=== PATIENT | male | born 1995 | race Caucasian/White ===

== ENCOUNTER 2023-03-28 10:08 | Outpatient (REF) | payer BC, SELFPAY ==
[2023-03-28 18:47] LABS: ALT 39 U/L (16-63); AST 39 U/L (15-37); Albumin 4.1 g/dL (3.4-5.0); Alkaline Phosphatase 80 U/L (46-116); BUN 21 mg/dL (7-18); Bilirubin, Total 0.6 mg/dL (0.2-1.0); CREATININE 1.1 mg/dL (0.70-1.30); Calcium 9.4 mg/dL (8.5-10.1); Chloride 104 mmol/L (98-107); Estimated GFR 93.19 (mL/min/1.73m2); Glucose 115 mg/dL (74-106); Potassium 3.9 mmol/L (3.5-5.1); Sodium 140 mmol/L (136-145); Total Protein 7.3 g/dL (6.4-8.2)
== END 2023-03-28 10:09 | disposition home or self-care (01) ==
LOC: NCHCN 10:08
PROVIDERS: PCP Internal Medicine; Visit Provider Nurse Practitioner Family
DX: Z00.00 Encounter for general adult medical examination without abnormal findings (principal)
CPT/HCPCS: 80053

== ENCOUNTER → 2023-07-15 17:22 | Outpatient (CLI) | payer BC, SELFPAY ==
--- NOTE | 2023-07-15 16:07 | DI.RAD_ITS ---
Exam(s) XR CHEST 2V PA LATERAL EXAM: XR CHEST 2V PA LATERAL CLINICAL HISTORY: COUGH R05.9 TECHNIQUE: 2D digital imaging was performed of the chest. Two images were obtained. PA and lateral views were obtained. COMPARISON: No priors for comparison FINDINGS: MEDIASTINUM: Normal. HEART: Normal. PULMONARY VASCULATURE: Normal. LUNGS: Clear. PLEURAL SPACE: No pleural effusion or pneumothorax. BONE:Within normal limits for the patient's age. OTHER FINDINGS:Normal. IMPRESSION: No acute pulmonary findings. DATA REPOSITORY: RADIATION DOSE DELIVERED:
== END ==
PROVIDERS: PCP Internal Medicine; Visit Provider Nurse Practitioner Family
DX: R05.9 Cough, unspecified (principal)
CPT/HCPCS: 71046

== ENCOUNTER 2025-01-28 16:10 | Emergency (ER) | payer OTHER, SELFPAY ==
--- NOTE | 2025-01-28 16:00 | RT.EKG_ITS ---
APPROVED REPORT Exam: Resting ECG Reason for Exam: paliptations Patient Location: E HR:45 bpm ECG Measurements Heart Rate 45 AXIS AL 165 P 57 QRSd 73 QRS 67 QT 413 T 67 QTc 358 Conclusion Slow sinus arrhythmia...V-rate 36- 52, mean< 60
[2025-01-28 16:22] VITALS: BP 127/84; PULSE 54; RESP 20; TEMP 36.5; O2SAT 98
--- NOTE | 2025-01-28 16:30 | DI.RAD_ITS ---
Exam(s) XR CHEST 2V PA LATERAL EXAM: XR CHEST 2V PA LATERAL CLINICAL HISTORY: palpitations TECHNIQUE: 2D digital imaging was performed of the chest. Two images were obtained. PA and lateral views were obtained. COMPARISON: CR XR CHEST 2V PA LATERAL from 07/15/2023 FINDINGS: MEDIASTINUM: Normal. HEART: Normal. PULMONARY VASCULATURE: Normal. LUNGS: Clear. PLEURAL SPACE: No pleural effusion or pneumothorax. BONE:Within normal limits for the patient's age. OTHER FINDINGS:Normal. IMPRESSION: No acute pulmonary findings. DATA REPOSITORY: RADIATION DOSE DELIVERED:
--- NOTE | 2025-01-28 16:46 | ED.GENADUL_ITS ---
Discharge Plan Disposition Patient Disposition: Home Condition: Stable Discharge Details Clinical Impression: Palpitations Primary Care Provider: HENRIK OROZCO ED Provider: Trever Fischer Home Meds and New Rx's Prescriptions: No Action No Known Home Meds Discharge Instructions Additional Instructions: Your blood work did not show any concerning findings, you did have findings consistent with likely mild dehydration. Follow-up with your primary care provider. If you feel more ill or have severe worsening pain or difficulty breathing return to the emergency department for reevaluation. HPI General Mode of arrival: ambulatory . Date/Time Provider Initiated Documentation: 01/28/25 16:14 . Limitations to Documentation: no limitations . Information obtained by: patient . History of Present Illness 30 year old M presents to the emergency department with the chief complaint of palpitations, described as moderate, and is localized to the chest. Patient reports no radiation. Patient started experiencing this hour(s) (2) and it has been now resolved. No relieving factors improve symptom(s), No exacerbating factors reported . Patient notes no other symptoms.. Patient did receive the following treatments prior to arrival, none Related Data Home Medications Medication Instructions Recorded Confirmed Unknown [No Known Home Meds] 08/22/21 1 Allergies Allergy/AdvReac Type Severity Reaction Status Date / Time clarithromycin (From Biaxin) Allergy Intermediate Anaphylaxis Verified 01/28/25 16:24 General Stated Complaint: Palpitatns OTILIA: 3 Review of Systems All systems reviewed & are unremarkable except as noted in HPI and below Constitutional Constitutional: Denies chills, Denies fever(s) and Denies weakness Cardiovascular Cardiovascular: Reports chest pain and Denies dyspnea Respiratory Respiratory: Denies cough and Denies dyspnea Gastrointestinal Gastrointestinal: Denies abdominal pain Neurologic Neurologic: Denies weakness Exam Const General: no acute distress Orientation: alert [facility] Head: normal to inspection Ears: external ears normal General nose exam: external nose normal Mouth: moist mucous membranes Eyes General: appearance normal, both eyes and all related structures Neck Neck: normal visual inspection Chest Chest: normal inspection of the chest Resp Effort & Inspection: normal respiratory effort and able to speak in complete sentences Auscultation: clear to auscultation bilaterally Cardio Jugular venous pressure: no JVD Rate: regular rate Heart Sounds: no murmurs Skin General skin exam: no rashes or lesions noted Neuro General: patient alert and patient oriented x3 Extrem General: normal to inspection Psych Mental Status: mental status grossly normal Course Vital Signs Vital signs: Vital Signs Temperature 36.5 C 01/28/25 16:22 Pulse 54 L 01/28/25 16:22 Respiratory Rate 20 01/28/25 16:22 Blood Pressure 127/84 01/28/25 16:22 Pulse Oximetry 98 01/28/25 16:22 Temperature 36.5 C 01/28/25 16:22 Pulse 54 L 01/28/25 16:22 Respiratory Rate 20 01/28/25 16:22 Blood Pressure 127/84 01/28/25 16:22 Blood Pressure Position Sitting 01/28/25 16:22 Pulse Oximetry 98 01/28/25 16:22 Oxygen Delivery Method Room Air 01/28/25 16:22 Oxygen Flow Rate 0 01/28/25 16:22 Medical Decision Making 30-year-old male with no significant past medical history comes in after he was feeling stressed at work and started to feel his heart beating irregularly having some chest pain so states he went to express care and then was referred to come here. He states that he is feeling much better. He never had any vomiting or diaphoresis. He denies any recent travel or leg pain or calf pain. He is well-appearing speaking full sentences. He has clear lung sounds, no murmurs, no JVD, no leg swelling or calf tenderness. I suspect this could have been a panic attack but will check CBC CMP TSH and troponins. He is Wells low and PERC negative so doubt PE. Return back pain and has equal peripheral pulses so I doubt dissection. Labs show no emergent findings, BUN is mildly elevated and he states he has not been drinking plenty of fluids so could be partially dehydrated. He is asymptomatic. I suspect this is anxiety versus panic attack. He will follow-up with his PCP and return precautions given. Differential Diagnosis Differential Diagnosis: Headache attack, anxiety, chest wall pain Lab Data Lab results reviewed: Yes I reviewed the patient's lab results. ECG Data Attestation: I personally reviewed and interpreted this ECG (s) as follows: Prior ECG tracings: available for review Interpretation: Status bradycardia, rate 45, HI 165, no STEMI PFSH All Active Problems (Updated 01/28/25 @ 18:09 by Trever Fischer MD) Palpitations (Acute) Hyperacusis of left ear (Acute) Health care maintenance (Acute) Exercise induced bronchospasm (Acute) Sesamoiditis (Acute) Bradycardia (Acute) Tinnitus of left ear (Acute) Eustachian tube dysfunction (Acute) Family History Father Hypertension Maternal Grandmother Lung disease Other Cancer Social History Smoking/Tobacco Use Status: Never Smoking risk assessment performed?: Yes Alcohol Intake: never Drug use: Occasionally Substance use type: marijuana current occupation: teacher Pets and animals: Yes Pets and animals: dog(s) PAWSS Have you Been Recently Intoxicated or Drunk Within the Last 30 days?: No Have you Ever Experienced Previous Episodes of Alcohol Withdrawal?: No Have you ever Experienced Withdrawal Seizures?: No Have you ever Experienced Delirium Tremens(DT)s?: No Have you ever undergone Alcohol Rehabilitation Treatment (i.e, inpt ot outpatient treatment programs)?: No Have you ever Experienced Blackouts?: No Have you ever Combined Alcohol with other Downers within the last 90 days?: No Have you ever Combined Alcohol with any other Substance of Abuse during the last 90 days?: No Positive Blood Alcohol level on Presentation? [PCS.BAL]: No Evidence of Increased Autonomic Activity (i.e. HR>120, tremor, sweating, agitation, nausea)?: No Result: 0
[2025-01-28 17:14] LABS: Abs Immature Grans 0.02 10^3/uL (0.0-0.06); HCT 45.8 % (40.0-50.0); HGB 15.4 g/dL (13.5-17.5); Immature Grans % 0.3 %; MCH 29.1 pg (27.0-33.0); MCHC 33.6 % (32.0-36.0); MCV 86 fL (80-95); MPV 10.1 fL (8.0-11.0); Platelet Count 227 10^3/uL (130-400); RBC 5.30 10^6/uL (4.36-5.78); RDW 12.7 % (11.8-14.1); RDW-SD 39.9 fL; WBC 6.93 10^3/uL (4.4-10.8)
[2025-01-28 17:44] LABS: Troponin I 6 ng/L (<or=76)
[2025-01-28 17:45] LABS: ALT 36 U/L (16-63); AST 26 U/L (15-37); Albumin 4.8 g/dL (3.4-5.0); Alkaline Phosphatase 65 U/L (46-116); Anion Gap 11.8 mmol/L (3-11); BUN 23 mg/dL (7-18); Bilirubin, Total 0.4 mg/dL (0.2-1.0); CO2 28.2 mmol/L (21.0-32.0); Calcium 9.8 mg/dL (8.5-10.1); Chloride 100 mmol/L (98-107); Glucose 91 mg/dL (74-106); Magnesium 2.1 mg/dL (1.8-2.4); Potassium 3.5 mmol/L (3.5-5.1); Sodium 140 mmol/L (136-145); TSH (W/Ref FT4) 3.47 uIU/mL (0.36-3.74); Total Protein 8.6 g/dL (6.4-8.2)
[2025-01-28 18:10] VITALS: BP 115/68; PULSE 64; TEMP 36.3; O2SAT 64
[2025-01-28 18:25] LABS: Troponin I 6 ng/L (<or=76)
== END 2025-01-28 18:21 | disposition home or self-care (01) ==
PROVIDERS: Nurse Practitioner Family; Emergency Provider Emergency Medicine; PCP Nurse Practitioner Family
DX: R00.2 Palpitations (principal)
CPT/HCPCS: 99283; 99284; 36415; 80053; 93005; 71046; 83735; 84443; 84484; 85025; 93010